=== PATIENT | male | born 1985 | race Caucasian/White ===

== ENCOUNTER 2021-03-28 18:27 | Emergency (ER) | payer SELFPAY ==
[~2021-03-28] VITALS: Ht 160 cm; Wt 78.3 kg
--- NOTE | 2021-03-28 19:05 | PHYS DOC ---
Adult General Chief Complaint Chief Complaint: DIZZY/LIGHT HEADED HPI HPI The patient is a 35-year-old male smoker who is otherwise healthy. He presents for evaluation of about 2 weeks of intermittent room spinning dizziness in association with tinnitus and fullness of his right ear. Dizziness is paroxysmal, coming on and going away rather abruptly, and is markedly worse with changes in head position and moving around and better with laying down and resting. Dizziness is also improved with visual fixation on a distant object. Episodes seem to last about 30 to 45 minutes before they go away, and patient has been having 2 or 3 episodes per day. Associated nausea when dizziness is severe. Tinnitus comes and goes without rhyme or reason in the right ear and patient states it started at about the same time as his vertigo did. Patient denies associated fevers, nausea or vomiting, upper respiratory congestion/rhinorrhea, cough, sore throat, shortness of breath or chest pain of any kind, abdominal pain of any kind, flank pain, midline back pain, dysuria, hematuria, polyuria or oliguria, changes in bowel habits. He denies headache, focal or lateralizing weakness, numbness or tingling, neck stiffness/pain /meningismus, vision changes, difficulty walking aside from when dizziness is severe. Patient is alert and pleasantly and appropriately interactive, oriented x4, moving all extremities equally and in no acute distress with completely appropriate vital signs upon initial evaluation here in the emergency department. He ambulated in with a narrow, steady gait. He reports that his last episode of vertigo was a few hours ago and at this time he is asymptomatic and feels well. Review of Systems Review of Systems A 12 point review of systems was completed and was negative except where noted in HPI above. Allergies Allergies Allergies Coded Allergies Type Severity Reaction Last Updated Verified No Known Drug Allergies 03/28/21 No Physical Exam Physical Exam Younger male appearing nontoxic and in no acute distress. Head is normocephalic and atraumatic. Neck is supple and nontender. No neck stiffness/rigidity/meningismus seen and patient ranges his neck fully in all dimensions without discomfort or distress. Kernig's and Brudzinski's sign negative. Oropharynx is moist. Tympanic membranes clear bilaterally. Lungs are clear to auscultation at all stations. There is a normal S1 and S2 without rubs or gallops and capillary refill is appropriate, less than 2 seconds globally. Abdomen is soft, nontender nondistended without pulsatile mass. Skin is warm and dry without cyanosis, clubbing or edema. Psychiatrically, the patient demonstrates appropriate mood and affect and is alert. Evaluation of the extremities reveals BUEs and BLEs neurovascularly intact distally with strength out of 5, sensation intact light touch in all nerve distributions, radial, DP and PT pulses 2+ equal bilaterally, capillary refill less than 2 seconds, hands and feet warm and well-perfused. No dependent peripheral edema distally. No calf tenderness or swelling bilaterally. Homans test is negative bilaterally. Neurologically, cranial nerves II through XII are intact and there are no lateralizing deficit seen. Speech is normal. Language is normal. Coordination is normal. Romberg is negative. There is no dysmetria [id number]-ce-rgtm or qecy-[id number] bilaterally. Strength is 5 out of 5 at all joints of bilateral upper and lower extremities. Sensation is intact to light touch in bilateral upper and lower extremities. Patient ambulates with a na rrow, steady, non-ataxic gait here in the emergency department and is alert and oriented x4. No nystagmus provokable with extraocular movements. Pupils 3 mm and briskly bilaterally reactive. No anisocoria. Current Patient Data Vital Signs Vital Signs Date Time Temp Pulse Resp B/P (MAP) Pulse Ox O2 Delivery O2 Flow Rate FiO2 03/28/21 18:40 98.1 68 18 149/81 (103) 99 Room Air 98.1 Lab Values Laboratory Tests Test 03/28/21 19:40 White Blood Count 7.1 x10^3/uL (4.0-11.0) Red Blood Count 4.65 x10^6/uL (4.30-5.70) Hemoglobin 14.3 g/dL (13.0-17.5) Hematocrit 42.5 % (39.0-53.0) Mean Corpuscular Volume 91 fL (79-100) Mean Corpuscular Hemoglobin 31 pg (25-35) Mean Corpuscular Hemoglobin Concent 34 g/dL (31-37) Red Cell Distribution Width 13.1 % (11.5-14.5) Platelet Count 215 x10^3/uL (140-400) Neutrophils (%) (Auto) 54 % (31-73) Lymphocytes (%) (Auto) 34 % (24-48) Monocytes (%) (Auto) 10 % (0-9) H Eosinophils (%) (Auto) 2 % (0-3) Basophils (%) (Auto) 0 % (0-3) Neutrophils # (Auto) 3.8 x10^3/uL (1.8-7.7) Lymphocytes # (Auto) 2.4 x10^3/uL (1.0-4.8) Monocytes # (Auto) 0.7 x10^3/uL (0.0-1.1) Eosinophils # (Auto) 0.2 x10^3/uL (0.0-0.7) Basophils # (Auto) 0.0 x10^3/uL (0.0-0.2) Sodium Level 141 mmol/L (136-145) Potassium Level 3.7 mmol/L (3.5-5.1) Chloride Level 104 mmol/L (98-107) Carbon Dioxide Level 27 mmol/L (21-32) Anion Gap 10 (6-14) Blood Urea Nitrogen 13 mg/dL (8-26) Creatinine 0.8 mg/dL (0.7-1.3) Estimated GFR (Cockcroft-Gault) 109.4 BUN/Creatinine Ratio 16 (6-20) Glucose Level 107 mg/dL (70-99) H Calcium Level 8.6 mg/dL (8.5-10.1) Total Bilirubin 0.6 mg/dL (0.2-1.0) Aspartate Amino Transferase (AST) 13 U/L (15-37) L Alanine Aminotransferase (ALT) 13 U/L (16-63) L Alkaline Phosphatase 85 U/L (46-116) Troponin I High Sensitivity 6 ng/L (4-75) Total Protein 6.9 g/dL (6.4-8.2) Albumin 3.5 g/dL (3.4-5.0) Albumin/Globulin Ratio 1.0 (1.0-1.7) Laboratory Tests 03/28/21 19:40 Laboratory Tests 03/28/21 19:40 EKG EKG Sinus rhythm, no acute ST elevation or depression, normal intervals, EP interpretation. Nonischemic tracing Radiology/Procedures Radiology/Procedures CT brain without contrast. HISTORY: Vertigo CT scan of brain was done without contrast. Sinuses are clear. A skull fracture is not identified. Mastoid air cells are normally aerated. There is no abnormal fluid in the middle ear. There is no intracranial hemorrhage or subdural hematoma. There is no mass effect or shift of the midline. Ventricles are normal in size. An acute CVA is not identified. IMPRESSION: 1. No intracranial hemorrhage or acute finding noted. RS Compliance Statement: One or more of the following individualized dose reduction techniques were utilized for this examination: 1. Automated exposure control 2. Adjustment of the mA and/or kV according to patient size 3. Use of iterative reconstruction technique Electronically signed by: Jose E Bowers MD (03/28/2021 7:43 PM) [facility] DICTATED and SIGNED BY: JOSE E BOWERS MD DATE: 03/28/[id number] 0 [] INDICATION: Reason: vertigo / Spl. Instructions: / History: COMPARISON: None. FINDINGS: Single view of chest obtained. Cardiac silhouette is unremarkable. No gross osseous destructive lesion. Well-defined focal airspace consolidation is not seen. IMPRESSION: * No definite focal airspace consolidation. Electronically signed by: Isaak Gill MD (03/28/2021 7:23 PM) DESKTOP- [id number] DICTATED and SIGNED BY: ISAAK GILL MD DATE: 03/28/217075SBP1 0 Course & Med Decision Making Course & Med Decision Making Well-appearing 35-year-old gentleman, completely asymptomatic and with normal vital signs, clinical examination and nonfocal neurologic examination, presenting for episodes of paroxysmal vertigo which by history sound most consistent with Mnire's disease, given associated right ear tinnitus. Will check labs, EKG and imaging as noted but if reassuring will plan for likely discharge with meclizine and low-dose Ativan to follow-up very closely with ENT. Patient understands and agrees with this plan of care. 2112: Patient remains entirely asymptomatic and with a nonfocal neurologic exam on serial reassessments. He is ambulatory about his room and in the lama without any difficulty. Labs and imaging are without evidence of acute process. As above, overall scenario seems most consistent with Mnire's and there is no evidence of a central process. Will discharge home with prescriptions for meclizine and low-dose Ativan and a referral to Dr. Gill of ENT for close clinic follow-up. Patient understands that if he feels worse instead of better or has other new symptoms of concern that he should return to the emergency depa rtment immediately for reevaluation. All questions are answered. Dragon Disclaimer Silvanoon Disclaimer This electronic medical record was generated, in whole or in part, using a voice recognition dictation system. Departure Departure Impression: Primary Impression: Peripheral vertigo involving right ear Disposition: HOME / SELF CARE / HOMELESS Condition: GOOD Referrals: LILIA GILL MD Patient Instructions: Vertigo Additional Instructions: Follow-up very closely with Dr. Lilia Gill of ENT in the office in the next 2 to 4 days for a reevaluation of your symptoms and to discussion of next best steps in care. Call tomorrow for an appointment. It is really important that you follow-up with the specialist so please make an effort to make an appointment and go to it. Drink lots of fluids. Take a meclizine pill every 6 hours as needed for vertigo symptoms. For vertigo symptoms not controlled with meclizine you can try an Ativan pill every 6-8 hours as needed. Be careful with Ativan as it can make you sleepy so do not drive or work or operate machinery while taking it. Return to the emergency department right away for worsening symptoms of any kind or with any other new symptoms of concern. Scripts Lorazepam (ATIVAN) 0.5 Mg Tablet 0.5 MG PO BID for dizziness, #8 TAB Prov: ROSALVA BRIGGS MD 03/28/21 Meclizine Hcl (MECLIZINE HCL) 25 Mg Tablet 1 TAB PO TID for dizziness, #24 TAB Prov: ROSALVA BRIGGS MD 03/28/21 ROSALVA BRIGGS MD Mar 28, 2021 19:05
--- NOTE | 2021-03-28 19:25 | RAD ---
INDICATION: Reason: vertigo / Spl. Instructions: / History: COMPARISON: None. FINDINGS: Single view of chest obtained. Cardiac silhouette is unremarkable. No gross osseous destructive lesion. Well-defined focal airspace consolidation is not seen. IMPRESSION: * No definite focal airspace consolidation. Electronically signed by: Chucho Hooks MD (03/28/2021 7:23 PM) [id number]
--- NOTE | 2021-03-28 19:45 | RAD ---
CT brain without contrast. HISTORY: Vertigo CT scan of brain was done without contrast. Sinuses are clear. A skull fracture is not identified. Ma stoid air cells are normally aerated. There is no abnormal fluid in the middle ear. There is no intra cranial hemorrhage or subdural hematoma. There is no mass effect or shift of the midline. Ventricles are normal in size. An acute CVA is not identified. IMPRESSION: 1. No intracranial hemorrhage or acute finding noted. PQRS Compliance Statement: One or more of the following individualized dose reduction techniques were utilized for this examinat ion: 1. Automated exposure control 2. Adjustment of the mA and/or kV according to patient size 3. Use of iterative reconstruction technique Electronically signed by: Jose E Bowers MD (03/28/2021 7:43 PM) [facility]
[2021-03-28 19:51] LABS: BASO % 0 % (0-3); EOS # 0.2 x10^3/uL (0.0-0.7); EOS % 2 % (0-3); HEMATOCRIT 42.5 % (39.0-53.0); HEMOGLOBIN 14.3 g/dL (13.0-17.5); LYMPH # 2.4 x10^3/uL (1.0-4.8); LYMPH % 34 % (24-48); MEAN CORPUSCULAR HEMOGLOBIN 31 pg (25-35); MEAN CORPUSCULAR HGB CONC 34 g/dL (31-37); MEAN CORPUSCULAR VOLUME 91 fL (79-100); MONO # 0.7 x10^3/uL (0.0-1.1); MONO % 10 % (0-9); NEUT # 3.8 x10^3/uL (1.8-7.7); NEUT % 54 % (31-73); PLATELET COUNT 215 x10^3/uL (140-400); RED BLOOD COUNT 4.65 x10^6/uL (4.30-5.70); RED CELL DISTRIBUTION WIDTH 13.1 % (11.5-14.5); WHITE BLOOD COUNT 7.1 x10^3/uL (4.0-11.0)
[2021-03-28 20:00] LABS: CALCIUM 8.6 mg/dL (8.5-10.1); CREATININE 0.8 mg/dL (0.7-1.3); GFR 109.4; POTASSIUM 3.7 mmol/L (3.5-5.1)
[2021-03-28 20:06] LABS: ALBUMIN 3.5 g/dL (3.4-5.0); TOTAL BILIRUBIN 0.6 mg/dL (0.2-1.0); TOTAL PROTEIN 6.9 g/dL (6.4-8.2)
[2021-03-28 20:30] VITALS: BP 111/94
[2021-03-28] MEDS ORDERED: MECL-75 PO (21:47)
[2021-03-28] MEDS ORDERED: LORA0.5T96 PO ×2 (21:47→21:49)
--- NOTE | 2021-03-29 03:39 | EKG ---
[facility] [address] [place] [address] Test Date: 2021-03-28 Test Time: 18:40:49 Pat Name: SULMA ALMEIDA Department: Room: Gender: M Safety Sitter: : 1985 Requested By: ROSALVA BRIGGS Order Number: [id number] Reading MD: Measurements Intervals [place] Rate: 76 P: 32 FL: 166 QRS: 67 QRSD: 82 T: 31 QT: 396 QTc: 450 Interpretive Statements SINUS RHYTHM OTHERWISE NORMAL ECG RI6.02 Compared to ECG 03/28/2021 18:38:25 Sinus arrhythmia no longer present
--- NOTE | 2021-03-31 03:32 | EKG ---
[facility] [address] [place] [address] Test Date: 2021-03-28 Test Time: 18:38:25 Pat Name: SULMA ALMEIDA Department: Room: Gender: M Checker/Stocker: : 1985 Requested By: ROSALVA BRIGGS Order Number: [id number] Reading MD: Measurements Intervals [place] Rate: 72 P: 28 [place]: 166 QRS: 73 QRSD: 80 T: 43 QT: 388 QTc: 426 Interpretive Statements SINUS ARRHYTHMIA OTHERWISE NORMAL ECG RI6.02 No previous ECG available for comparison
== END 2021-03-28 21:30 | disposition home or self-care (01) ==
LOC: ER 18:27
DX: H81.391 Other peripheral vertigo, right ear (principal)
CPT/HCPCS: 36415; 70450; 71045; 80053; 84484; 85025; 93005; 99285-25